=== PATIENT | female | born 1980 | race Two or more races ===

== ENCOUNTER 2016-12-31 11:36 | Emergency (ER) | payer SELFPAY ==
[~2016-12-31] VITALS: Ht 162.6 cm; Wt 65.8 kg
[~2016-12-31 11:36] MED LIST: NO HOME MEDICATIONS
[2016-12-31 13:27] VITALS: BP 132/14
== END 2016-12-31 13:28 | disposition home or self-care (01) ==
LOC: ER 11:38
DX: K04.7 Periapical abscess without sinus (principal); J45.909 Unspecified asthma, uncomplicated; F41.9 Anxiety disorder, unspecified; F17.200 Nicotine dependence, unspecified, uncomplicated
CPT/HCPCS: 99283; A4606; Z7610

== ENCOUNTER 2016-12-31 15:33 | Emergency (ER) | payer SELFPAY ==
[~2016-12-31] VITALS: Ht 157.5 cm; Wt 65.8 kg
[2016-12-31 15:57] LABS: BASOPHILS % (AUTO) 0.4 % (0.0-2.0); DIFF TOTAL % 100 %; EOSINOPHILS # (AUTO) 1.1 /CMM (0.0-0.7); EOSINOPHILS % (AUTO) 10.8 % (0.0-6.0); HEMATOCRIT 33 % (33-45); HEMOGLOBIN 10.7 g/dL (11.5-14.8); LYMPHOCYTES # (AUTO) 2.4 /CMM (0.8-4.8); LYMPHOCYTES % (AUTO) 24.4 % (20.0-44.0); MEAN CORPUSCULAR HEMOGLOBIN 24 PG (26.0-33.0); MEAN CORPUSCULAR HGB CONC 32 g/dl (31.0-36.0); MEAN CORPUSCULAR VOLUME 75 fL (82-100); MONOCYTES # (AUTO) 0.8 /CMM (0.1-1.30); MONOCYTES % (AUTO) 8.1 % (2.0-12.0); NEUTROPHILS # (AUTO) 5.4 /CMM (1.8-8.9); NEUTROPHILS % (AUTO) 56.3 % (43.0-81.0); PLATELET COUNT (AUTO) 439 /CMM (150-450); RED BLOOD CELL COUNT(AUTO) 4.41 MIL/uL (4.0-5.2); WHITE BLOOD COUNT (AUTO) 9.7 K/uL (4.3-11.0)
[2016-12-31 16:08] LABS: ANION GAP 7 (5-14); CARBON DIOXIDE 33 mmol/L (21-32); CHLORIDE 104 mmol/L (98-107); CREATININE 0.7 mg/dL (0.6-1.3); GFR 95 mL/min (>60); GLUCOSE 96 mg/dL (74-106); POTASSIUM 4.1 mmol/L (3.5-5.1); SODIUM SERUM 140 mmol/L (136-145); UREA NITROGEN, BLOOD 17 mg/dL (7-18)
[2016-12-31] MEDS ORDERED: diphenhydrAMINE HCL 50 MG/ML VIAL ONE (16:11)
[2016-12-31] MEDS ORDERED: LORAZEPAM INJ 2 MG/ML VIAL ONE (16:11)
[2016-12-31] MEDS ORDERED: HALOPERIDOL LACTATE INJ 5 MG/ML VIAL ONE (16:11)
[2016-12-31 16:14] LABS: ACETAMINOPHEN 0 ug/ml (10-30); ALANINE AMINOTRANSFERASE 31 U/L (12-78); ALBUMIN 3.9 g/dL (3.4-5.0); ASPARTATE AMINOTRANSFERASE 19 U/L (15-37); BILIRUBIN,DIRECT 0.1 mg/dL (0.0-0.2); BILIRUBIN,TOTAL 0.3 mg/dL (0.2-1.0); INDIRECT BILIRUBIN 0.2 mg/dL (0.0-1.1); SALICYLATE 1.5 mg/dL (2.8-20.0); TOTAL PROTEIN, SERUM 8.2 g/dL (6.4-8.2)
[2016-12-31] MEDS ORDERED: LORAZEPAM INJ 2 MG/ML VIAL IVP ONE (16:30)
[2016-12-31] MEDS ORDERED: HALOPERIDOL LACTATE INJ 5 MG/ML VIAL IM ONE (16:30)
[2016-12-31] MEDS ORDERED: diphenhydrAMINE HCL 50 MG/ML VIAL IM ONE (16:30)
[2016-12-31 17:58] LABS: KETONES,URINE Trace (NEGATIVE); LEUKOCYTE ESTERASE ,URINE Negative (NEGATIVE); PH,URINE 5.5 (5.0-8.0)
[2016-12-31 17:59] LABS: PREGNANCY TEST URINE QUAL NEGATIVE (NEGATIVE)
[2016-12-31 18:00] LABS: ADD UA MICROSCOPIC YES
[2016-12-31 18:03] LABS: PHENCYCLIDINE SCREEN,URINE NEGATIVE (NEGATIVE)
[2016-12-31 18:05] LABS: CANNABINOID, URINE POSITIVE (NEGATIVE)
[2016-12-31 18:16] LABS: ADD URINE CULTURE NO; WBC,URINE 0-2 /HPF (0-3)
[2017-01-01 06:01] VITALS: BP 139/94
== END 2017-01-01 06:00 | disposition home or self-care (01) ==
LOC: ER 15:43
DX: F29 Unspecified psychosis not due to a substance or known physiological condition (principal); G40.909 Epilepsy, unspecified, not intractable, without status epilepticus; J45.909 Unspecified asthma, uncomplicated; F41.9 Anxiety disorder, unspecified; F17.200 Nicotine dependence, unspecified, uncomplicated
CPT/HCPCS: 36415; 80048; 80076; 80305; 80329; 81001; 84703; 85025; 96372 ×3; 99284; A4606; G0480 ×2; J1200; J1630; J2060; Z7610; 81000-TC; G6039-TC

== ENCOUNTER 2017-10-15 15:19 | Emergency (ER) | payer MEDICAID ==
[~2017-10-15] VITALS: Ht 165.1 cm; Wt 66.7 kg
[2017-10-15 15:19] VITALS: BP 146/78
--- NOTE | 2017-10-15 15:40 | NUR ---
PROVIDED FOOD AND SOCKS AT
== END 2017-10-15 16:00 | disposition home or self-care (01) ==
LOC: ER 15:21
DX: Z13.89 Encounter for screening for other disorder (principal); J45.909 Unspecified asthma, uncomplicated; F41.9 Anxiety disorder, unspecified; F17.200 Nicotine dependence, unspecified, uncomplicated; Z59.0 Homelessness
CPT/HCPCS: 99281; A4606; Z7610; Z7502